=== PATIENT | male | born 1995 | race Caucasian/White ===

== ENCOUNTER 2018-01-12 16:33 | Inpatient (IN) | payer OTHER ==
[~2018-01-12] VITALS: Ht 182.9 cm; Wt 66.7 kg
[2018-01-13] MEDS ORDERED: POLYETHYLENE GLYCOL 3350 17 GM PACKET PO PRN (16:15)
[2018-01-13] MEDS ORDERED: OxyCODONE HCL 5 MG IR TABLET PO PRN (16:15)
[2018-01-13 17:30] VITALS: BP 114/74
[2018-01-13 20:09] LABS: GLUCOMETER DEV NAME(LOC) 2WR 1C; GLUCOSE,POINT OF CARE 98 MG/DL (70-110)
[2018-01-13] MEDS: DOCUSATE SODIUM 100 MG CAPSULE PO SCH (20:53)
[2018-01-13] MEDS: ACETAMINOPHEN 650 MG/20.3 ML SOLUTION UDCUP GT PRN (20:53)
[2018-01-13] MEDS ORDERED: QUEtiapine FUMARATE 25 MG TABLET PO SCH (21:00)
[2018-01-13] MEDS: 0.9% SODIUM CHLORIDE 10 ML SYRINGE IVP SCH (23:51)
[2018-01-13] MEDS: HEPARIN SODIUM,PORCINE 5,000 UNITS/ML VIAL SQ SCH (23:51)
[2018-01-14 00:30] VITALS: BP 128/65
[2018-01-14 06:24] LABS: GLUCOMETER DEV NAME(LOC) 2WR 1C; GLUCOSE,POINT OF CARE 108 MG/DL (70-110)
[2018-01-14 06:36] LABS: BASOPHILS % (AUTO) 0.2 % (0.0-2.0); EOSINOPHILS % (AUTO) 3.2 % (1.0-6.0); HEMATOCRIT 36.8 % (41-53); HEMOGLOBIN 12.5 g/dL (13.5-17.5); LYMPHOCYTES # (AUTO) 2.1 K/uL (1.0-4.8); LYMPHOCYTES % (AUTO) 22.9 % (22.0-44.0); MEAN CORPUSCULAR HEMOGLOBIN 30.8 pg (26.0-34.0); MEAN CORPUSCULAR VOLUME 91 fL (80-100); MONOCYTES % (AUTO) 10.3 % (2.0-9.0); NEUTROPHILS % (AUTO) 63.4 % (40.0-70.0); PLATELET COUNT (AUTO) 338 K/uL (150-450); RED BLOOD CELL COUNT(AUTO) 4.06 MIL/uL (4.50-5.90); RED CELL DISTRIBUTION WIDTH 14.8 % (11.5-14.5)
[2018-01-14] MEDS ORDERED: SODIUM CL IRRIG SOLN BOTTLE 250 ML IRRIG ONE (06:46)
[2018-01-14 06:52] LABS: ALANINE AMINOTRANSFERASE 53 U/L (12-78); ALBUMIN 3.5 g/dL (3.4-5.0); ALKALINE PHOSPHATASE 112 U/L (46-116); ANION GAP 8 mmol/L (8-16); ASPARTATE AMINOTRANSFERASE 25 U/L (15-37); BILIRUBIN,TOTAL 0.3 mg/dL (0.1-1.0); CALCIUM, TOTAL 9.4 mg/dL (8.8-10.5); CARBON DIOXIDE 30 mmol/L (22-29); CHLORIDE 101 mmol/L (98-107); CREATININE 0.63 mg/dL (0.60-1.30); GLOMERULAR FILTR. RATE CALC > 60 mL/min (>60); GLUCOSE,RANDOM 112 mg/dL (70-110); POTASSIUM 3.9 mmol/L (3.5-5.1); SODIUM SERUM 139 mmol/L (136-145); UREA NITROGEN, BLOOD 19 mg/dL (7-18)
[2018-01-14 07:19] VITALS: BP 133/69
[2018-01-14] MEDS: 0.9% SODIUM CHLORIDE 10 ML SYRINGE IVP SCH ×2 (08:43→16:24)
[2018-01-14] MEDS: HEPARIN SODIUM,PORCINE 5,000 UNITS/ML VIAL SQ SCH ×2 (08:45→16:24)
[2018-01-14] MEDS: CHLORHEXIDINE GLUCONATE 0.12% 15 ML UDCUP ORAL RINSE PO SCH (08:45)
[2018-01-14] MEDS: LACTOBAC ACID/BULG/BIFID/THERM TABLET GT SCH (08:45)
[2018-01-14] MEDS: DOCUSATE SODIUM 100 MG CAPSULE PO SCH ×2 (08:45→21:05)
[2018-01-14 13:28] LABS: GLUCOMETER DEV NAME(LOC) 2WR 1C; GLUCOSE,POINT OF CARE 112 MG/DL (70-110)
[2018-01-14 15:39] VITALS: BP 133/70
[2018-01-14 18:09] LABS: GLUCOMETER DEV NAME(LOC) 2WR 1C; GLUCOSE,POINT OF CARE 103 MG/DL (70-110)
[2018-01-14] MEDS ORDERED: SODIUM CHLORIDE 0.9% IRRIG BTL 1,000 ML IRRIG ONE (19:52)
[2018-01-14] MEDS ORDERED: POLYETHYLENE GLYCOL 3350 17 GM PACKET GT PRN (20:30)
[2018-01-14] MEDS: QUEtiapine FUMARATE 25 MG TABLET GT SCH (21:05)
[2018-01-15] MEDS: 0.9% SODIUM CHLORIDE 10 ML SYRINGE IVP SCH ×2 (00:15→08:00)
[2018-01-15] MEDS: HEPARIN SODIUM,PORCINE 5,000 UNITS/ML VIAL SQ SCH ×4 (00:15→20:37)
[2018-01-15 00:58] VITALS: BP 130/66
[2018-01-15] MEDS ORDERED: WATER FOR IRRIGATION,STERILE 1000 ML SOLUTION BOTTLE ONE (05:29)
[2018-01-15 06:29] LABS: GLUCOMETER DEV NAME(LOC) 2WR 1C; GLUCOSE,POINT OF CARE 111 MG/DL (70-110)
[2018-01-15 08:00] VITALS: BP 136/63
[2018-01-15] MEDS: DOCUSATE SODIUM 100 MG CAPSULE PO SCH ×2 (08:15→20:37)
[2018-01-15] MEDS: FAMOTIDINE 20 MG TABLET PEG SCH (08:15)
[2018-01-15] MEDS: LACTOBAC ACID/BULG/BIFID/THERM TABLET GT SCH (08:15)
[2018-01-15] MEDS: CHLORHEXIDINE GLUCONATE 0.12% 15 ML UDCUP ORAL RINSE PO SCH (08:16)
[2018-01-15 15:36] VITALS: BP 124/68
[2018-01-15 18:04] LABS: GLUCOMETER DEV NAME(LOC) 2WR 2E; GLUCOSE,POINT OF CARE 108 MG/DL (70-110)
[2018-01-15] MEDS: QUEtiapine FUMARATE 25 MG TABLET GT SCH (20:37)
[2018-01-16] VITALS: BP 129/68
[2018-01-16 05:54] LABS: GLUCOMETER DEV NAME(LOC) 2WR 1C; GLUCOSE,POINT OF CARE 110 MG/DL (70-110)
[2018-01-16] MEDS ORDERED: WATER FOR IRRIGATION,STERILE 1000 ML SOLUTION BOTTLE ONE (05:55)
[2018-01-16 07:30] VITALS: BP 129/69
[2018-01-16] MEDS: CHLORHEXIDINE GLUCONATE 0.12% 15 ML UDCUP ORAL RINSE PO SCH (08:16)
[2018-01-16] MEDS: LACTOBAC ACID/BULG/BIFID/THERM TABLET GT SCH (08:16)
[2018-01-16] MEDS: FAMOTIDINE 20 MG TABLET PEG SCH (08:16)
[2018-01-16] MEDS: DOCUSATE SODIUM 250 MG CAPSULE PO SCH ×2 (08:16→20:27)
[2018-01-16] MEDS: HEPARIN SODIUM,PORCINE 5,000 UNITS/ML VIAL SQ SCH ×3 (08:16→20:27)
[2018-01-16] MEDS: ACETAMINOPHEN 650 MG/20.3 ML SOLUTION UDCUP GT PRN (13:59)
[2018-01-16 15:24] VITALS: BP 124/65
[2018-01-16 19:38] LABS: GLUCOMETER DEV NAME(LOC) 2WR.2; GLUCOSE,POINT OF CARE 91 MG/DL (70-110)
[2018-01-16] MEDS: QUEtiapine FUMARATE 25 MG TABLET GT SCH (20:27)
[2018-01-16] MEDS: SENNA 218 MG/5 ML SYRUP ORAL.SYG GT SCH (20:27)
[2018-01-17 00:08] VITALS: BP 124/52
[2018-01-17 06:13] LABS: GLUCOMETER DEV NAME(LOC) 2WR.2; GLUCOSE,POINT OF CARE 105 MG/DL (70-110)
[2018-01-17 08:00] VITALS: BP 133/68
[2018-01-17] MEDS: FAMOTIDINE 20 MG TABLET PEG SCH (08:54)
[2018-01-17] MEDS: DOCUSATE SODIUM 250 MG CAPSULE PO SCH ×2 (08:54→20:16)
[2018-01-17] MEDS: CHLORHEXIDINE GLUCONATE 0.12% 15 ML UDCUP ORAL RINSE PO SCH (08:54)
[2018-01-17] MEDS: HEPARIN SODIUM,PORCINE 5,000 UNITS/ML VIAL SQ SCH ×3 (08:54→20:16)
[2018-01-17] MEDS: LACTOBAC ACID/BULG/BIFID/THERM TABLET GT SCH (08:54)
[2018-01-17] MEDS: ACETAMINOPHEN 650 MG/20.3 ML SOLUTION UDCUP GT PRN (14:04)
[2018-01-17] MEDS ORDERED: HYPROMELLOSE 0.5% 15 ML OPHTHALMIC SOLUTION OD PRN (15:00)
[2018-01-17 15:38] VITALS: BP 128/65
[2018-01-17 17:43] LABS: GLUCOMETER DEV NAME(LOC) 2WR.1; GLUCOSE,POINT OF CARE 108 MG/DL (70-110)
[2018-01-17 20:13] VITALS: BP 130/69
[2018-01-17] MEDS: QUEtiapine FUMARATE 25 MG TABLET GT SCH (20:15)
[2018-01-17] MEDS: SENNA 218 MG/5 ML SYRUP ORAL.SYG GT SCH (20:15)
[2018-01-17 23:38] VITALS: BP 120/70
[2018-01-18 06:19] LABS: GLUCOMETER DEV NAME(LOC) 2WR.1; GLUCOSE,POINT OF CARE 107 MG/DL (70-110)
[2018-01-18 07:29] LABS: ALANINE AMINOTRANSFERASE 38 U/L (12-78); ALBUMIN 3.3 g/dL (3.4-5.0); ALKALINE PHOSPHATASE 122 U/L (46-116); ANION GAP 7 mmol/L (8-16); ASPARTATE AMINOTRANSFERASE 28 U/L (15-37); BILIRUBIN,TOTAL 0.3 mg/dL (0.1-1.0); CALCIUM, TOTAL 8.8 mg/dL (8.8-10.5); CARBON DIOXIDE 30 mmol/L (22-29); CHLORIDE 103 mmol/L (98-107); CREATININE 0.77 mg/dL (0.60-1.30); GLOMERULAR FILTR. RATE CALC > 60 mL/min (>60); GLUCOSE,RANDOM 96 mg/dL (70-110); POTASSIUM 3.9 mmol/L (3.5-5.1); SODIUM SERUM 140 mmol/L (136-145); TOTAL PROTEIN, SERUM 7.4 g/dL (6.4-8.2); UREA NITROGEN, BLOOD 18 mg/dL (7-18)
[2018-01-18 08:00] VITALS: BP 126/70
[2018-01-18] MEDS: HEPARIN SODIUM,PORCINE 5,000 UNITS/ML VIAL SQ SCH ×3 (08:32→20:39)
[2018-01-18] MEDS: FAMOTIDINE 20 MG TABLET PEG SCH (08:32)
[2018-01-18] MEDS: DOCUSATE SODIUM 250 MG CAPSULE PO SCH ×2 (08:32→20:38)
[2018-01-18] MEDS: CHLORHEXIDINE GLUCONATE 0.12% 15 ML UDCUP ORAL RINSE PO SCH (08:32)
[2018-01-18] MEDS: LACTOBAC ACID/BULG/BIFID/THERM TABLET GT SCH (08:32)
[2018-01-18 15:30] VITALS: BP 131/73
[2018-01-18 17:59] LABS: GLUCOMETER DEV NAME(LOC) 2WR.2; GLUCOSE,POINT OF CARE 93 MG/DL (70-110)
[2018-01-18] MEDS: SENNA 218 MG/5 ML SYRUP ORAL.SYG GT SCH (20:38)
[2018-01-18] MEDS: QUEtiapine FUMARATE 25 MG TABLET GT SCH (20:38)
[2018-01-19 00:31] VITALS: BP 113/77
[2018-01-19 07:00] VITALS: BP 116/65
[2018-01-19 07:03] LABS: GLUCOMETER DEV NAME(LOC) 2WR.2; GLUCOSE,POINT OF CARE 98 MG/DL (70-110)
[2018-01-19] MEDS: LACTOBAC ACID/BULG/BIFID/THERM TABLET GT SCH (09:30)
[2018-01-19] MEDS: FAMOTIDINE 20 MG TABLET PEG SCH (09:30)
[2018-01-19] MEDS: CHLORHEXIDINE GLUCONATE 0.12% 15 ML UDCUP ORAL RINSE PO SCH (09:30)
[2018-01-19] MEDS: DOCUSATE SODIUM 250 MG CAPSULE PO SCH ×2 (09:30→20:52)
[2018-01-19] MEDS: HEPARIN SODIUM,PORCINE 5,000 UNITS/ML VIAL SQ SCH (09:30)
[2018-01-19 15:43] VITALS: BP 143/71
[2018-01-19] MEDS ORDERED: CHLORHEXIDINE GLUCONATE 4% 118 ML TOPICAL LIQUID TP ONE (19:00)
[2018-01-19 19:19] LABS: GLUCOMETER DEV NAME(LOC) 2WR.2; GLUCOSE,POINT OF CARE 92 MG/DL (70-110)
[2018-01-19] MEDS: SENNA 218 MG/5 ML SYRUP ORAL.SYG GT SCH (20:53)
[2018-01-19] MEDS: QUEtiapine FUMARATE 25 MG TABLET GT SCH (20:53)
[2018-01-19 23:30] VITALS: BP 119/67
[2018-01-20 05:59] LABS: GLUCOMETER DEV NAME(LOC) 2WR.1; GLUCOSE,POINT OF CARE 90 MG/DL (70-110)
[2018-01-20 06:30] VITALS: BP 134/63
[2018-01-20] MEDS: CHLORHEXIDINE GLUCONATE 0.12% 15 ML UDCUP ORAL RINSE PO SCH (09:00)
[2018-01-20] MEDS: LACTOBAC ACID/BULG/BIFID/THERM TABLET GT SCH (09:00)
[2018-01-20] MEDS: FAMOTIDINE 20 MG TABLET PEG SCH (09:00)
[2018-01-20] MEDS: DOCUSATE SODIUM 250 MG CAPSULE PO SCH ×2 (09:00→20:28)
[2018-01-20 17:49] VITALS: BP 127/67
[2018-01-20] MEDS: OxyCODONE HCL 5 MG IR TABLET GT PRN (18:18)
[2018-01-20 19:49] LABS: GLUCOMETER DEV NAME(LOC) 2WR.1; GLUCOSE,POINT OF CARE 88 MG/DL (70-110)
[2018-01-20] MEDS: QUEtiapine FUMARATE 25 MG TABLET GT SCH (20:28)
[2018-01-20] MEDS: SENNA 218 MG/5 ML SYRUP ORAL.SYG GT SCH (20:28)
[2018-01-21 00:21] VITALS: BP 115/61
[2018-01-21] MEDS: OxyCODONE HCL 5 MG IR TABLET GT PRN ×3 (00:21→09:19)
[2018-01-21 06:35] LABS: GLUCOMETER DEV NAME(LOC) 2WR.2; GLUCOSE,POINT OF CARE 101 MG/DL (70-110)
[2018-01-21 08:18] VITALS: BP 130/69
[2018-01-21] MEDS: FAMOTIDINE 20 MG TABLET PEG SCH (09:19)
[2018-01-21] MEDS: HEPARIN SODIUM,PORCINE 5,000 UNITS/ML VIAL SQ SCH ×4 (09:20→21:24)
[2018-01-21] MEDS: LACTOBAC ACID/BULG/BIFID/THERM TABLET GT SCH (09:20)
[2018-01-21] MEDS: CHLORHEXIDINE GLUCONATE 0.12% 15 ML UDCUP ORAL RINSE PO SCH (09:20)
[2018-01-21] MEDS: DOCUSATE SODIUM 250 MG CAPSULE PO SCH ×2 (09:20→21:24)
[2018-01-21] MEDS ORDERED: OxyCODONE HCL 5 MG IR TABLET GT PRN (12:15)
[2018-01-21] MEDS: HYDROmorphone HCL 2 MG TABLET GT PRN ×2 (12:30→14:46)
[2018-01-21 15:46] VITALS: BP 125/71
[2018-01-21] MEDS: SENNA 218 MG/5 ML SYRUP ORAL.SYG GT SCH (21:23)
[2018-01-21] MEDS: QUEtiapine FUMARATE 25 MG TABLET GT SCH (21:24)
[2018-01-22] VITALS: BP 125/61
[2018-01-22 06:03] LABS: GLUCOMETER DEV NAME(LOC) 2WR.2; GLUCOSE,POINT OF CARE 103 MG/DL (70-110)
[2018-01-22 06:47] LABS: BASOPHILS % (AUTO) 0.6 % (0.0-2.0); EOSINOPHILS % (AUTO) 7.3 % (1.0-6.0); HEMATOCRIT 37.5 % (41-53); LYMPHOCYTES # (AUTO) 1.7 K/uL (1.0-4.8); LYMPHOCYTES % (AUTO) 32.7 % (22.0-44.0); MEAN CORPUSCULAR HEMOGLOBIN 31.4 pg (26.0-34.0); MEAN CORPUSCULAR HGB CONC 34.8 G/dL (31.0-37.0); MEAN CORPUSCULAR VOLUME 90 fL (80-100); MONOCYTES # (AUTO) 0.4 K/uL (0.1-1.0); NEUTROPHILS # (AUTO) 2.7 K/uL (1.8-7.7); NEUTROPHILS % (AUTO) 52.4 % (40.0-70.0); PLATELET COUNT (AUTO) 308 K/uL (150-450); RED BLOOD CELL COUNT(AUTO) 4.15 MIL/uL (4.50-5.90); RED CELL DISTRIBUTION WIDTH 15.1 % (11.5-14.5)
[2018-01-22 07:03] LABS: ANION GAP 5 mmol/L (8-16); CALCIUM, TOTAL 8.9 mg/dL (8.8-10.5); CARBON DIOXIDE 31 mmol/L (22-29); CHLORIDE 104 mmol/L (98-107); CREATININE 0.85 mg/dL (0.60-1.30); GLOMERULAR FILTR. RATE CALC > 60 mL/min (>60); GLUCOSE,RANDOM 106 mg/dL (70-110); SODIUM SERUM 140 mmol/L (136-145); UREA NITROGEN, BLOOD 13 mg/dL (7-18)
[2018-01-22 08:00] VITALS: BP 109/59
[2018-01-22] MEDS: CHLORHEXIDINE GLUCONATE 0.12% 15 ML UDCUP ORAL RINSE PO SCH (08:58)
[2018-01-22] MEDS: FAMOTIDINE 20 MG TABLET PEG SCH (08:58)
[2018-01-22] MEDS: LACTOBAC ACID/BULG/BIFID/THERM TABLET GT SCH (08:58)
[2018-01-22] MEDS: HEPARIN SODIUM,PORCINE 5,000 UNITS/ML VIAL SQ SCH ×2 (08:59→21:03)
[2018-01-22] MEDS: DOCUSATE SODIUM 250 MG CAPSULE PO SCH ×2 (08:59→21:02)
[2018-01-22 15:42] VITALS: BP 127/64
[2018-01-22] MEDS: ACETAMINOPHEN 650 MG/20.3 ML SOLUTION UDCUP GT PRN (16:00)
[2018-01-22] MEDS: SENNA 218 MG/5 ML SYRUP ORAL.SYG GT SCH (21:02)
[2018-01-22] MEDS: QUEtiapine FUMARATE 25 MG TABLET GT SCH (21:02)
[2018-01-23 00:45] VITALS: BP 113/68
[2018-01-23] MEDS ORDERED: SODIUM CL IRRIG SOLN BOTTLE 250 ML IRRIG ONE (06:09)
[2018-01-23 06:39] LABS: GLUCOMETER DEV NAME(LOC) 2WR.1; GLUCOSE,POINT OF CARE 88 MG/DL (70-110)
[2018-01-23 07:28] VITALS: BP 120/70
[2018-01-23] MEDS: DOCUSATE SODIUM 250 MG CAPSULE PO SCH ×2 (08:08→20:53)
[2018-01-23] MEDS: HEPARIN SODIUM,PORCINE 5,000 UNITS/ML VIAL SQ SCH ×2 (08:08→20:54)
[2018-01-23] MEDS: CHLORHEXIDINE GLUCONATE 0.12% 15 ML UDCUP ORAL RINSE PO SCH (08:08)
[2018-01-23] MEDS: LACTOBAC ACID/BULG/BIFID/THERM TABLET GT SCH (08:08)
[2018-01-23] MEDS: FAMOTIDINE 20 MG TABLET PEG SCH (08:09)
[2018-01-23] MEDS ORDERED: ACETAMINOPHEN 650 MG/20.3 ML SOLUTION UDCUP PO PRN (11:30)
[2018-01-23] MEDS: MULTIVITAMINS WITH MINERALS, THERAPEUTIC TABLET PO SCH (13:27)
[2018-01-23 16:11] VITALS: BP 138/69
[2018-01-23 20:45] VITALS: BP 114/65
[2018-01-23] MEDS: SENNA 187 MG TABLET PO SCH (20:53)
[2018-01-23] MEDS: QUEtiapine FUMARATE 25 MG TABLET GT SCH (20:54)
[2018-01-23 21:45] VITALS: BP 115/56
[2018-01-23 23:39] VITALS: BP 108/55
[2018-01-24 06:20] LABS: GLUCOMETER DEV NAME(LOC) 2WR.2; GLUCOSE,POINT OF CARE 102 MG/DL (70-110)
[2018-01-24 07:29] VITALS: BP 117/65
[2018-01-24] MEDS: DOCUSATE SODIUM 250 MG CAPSULE PO SCH ×2 (08:06→20:04)
[2018-01-24] MEDS: CHLORHEXIDINE GLUCONATE 0.12% 15 ML UDCUP ORAL RINSE PO SCH (08:06)
[2018-01-24] MEDS: HEPARIN SODIUM,PORCINE 5,000 UNITS/ML VIAL SQ SCH ×2 (08:06→20:04)
[2018-01-24] MEDS: FAMOTIDINE 20 MG TABLET PO SCH (08:07)
[2018-01-24] MEDS: LACTOBAC ACID/BULG/BIFID/THERM TABLET PO SCH (08:07)
[2018-01-24] MEDS: MULTIVITAMINS WITH MINERALS, THERAPEUTIC TABLET PO SCH (08:08)
[2018-01-24] MEDS ORDERED: ACETAMINOPHEN 650 MG/20.3 ML SOLUTION UDCUP PO PRN (14:45)
[2018-01-24 15:20] VITALS: BP 119/74
[2018-01-24] MEDS: SENNA 187 MG TABLET PO SCH (20:04)
[2018-01-25] VITALS: BP 123/60
[2018-01-25] MEDS ORDERED: FAMO20 PO (03:06)
[2018-01-25] MEDS ORDERED: DOCU250C91 PO (03:06)
[2018-01-25] MEDS ORDERED: MULT-1239 PO (03:07)
[2018-01-25] MEDS ORDERED: PERID15L PO (03:10)
[2018-01-25 07:05] VITALS: BP 115/69
[2018-01-25] MEDS: MULTIVITAMINS WITH MINERALS, THERAPEUTIC TABLET PO SCH (07:35)
[2018-01-25] MEDS: LACTOBAC ACID/BULG/BIFID/THERM TABLET PO SCH (07:35)
[2018-01-25] MEDS: FAMOTIDINE 20 MG TABLET PO SCH (07:35)
[2018-01-25] MEDS: DOCUSATE SODIUM 250 MG CAPSULE PO SCH ×2 (07:35→20:49)
[2018-01-25] MEDS: HEPARIN SODIUM,PORCINE 5,000 UNITS/ML VIAL SQ SCH ×2 (07:36→20:50)
[2018-01-25] MEDS: CHLORHEXIDINE GLUCONATE 0.12% 15 ML UDCUP ORAL RINSE PO SCH (07:36)
[2018-01-25] MEDS: OxyCODONE HCL 5 MG IR TABLET PO PRN (14:05)
[2018-01-25 15:05] VITALS: BP 129/74
[2018-01-25] MEDS ORDERED: CARBOXYMETHYLCELLULOSE OD PRN (17:00)
[2018-01-25] MEDS ORDERED: REFRESH TEARS OD PRN (17:00)
[2018-01-25] MEDS ORDERED: [UNRECOGNIZED DRUG - OTHER] OD PRN (17:00)
[2018-01-25] MEDS: SENNA 187 MG TABLET PO SCH (20:49)
[2018-01-25] MEDS: ERYTHROMYCIN 0.5% 1 GM TUBE OPHTHALMIC OINTMENT OD SCH (20:49)
[2018-01-25] MEDS: REFRESH TEARS OD SCH (20:49)
[2018-01-26] VITALS: BP 131/67
[2018-01-26] MEDS: REFRESH TEARS OD SCH ×4 (07:39→20:33)
[2018-01-26] MEDS: DOCUSATE SODIUM 250 MG CAPSULE PO SCH ×2 (07:39→20:33)
[2018-01-26] MEDS: CHLORHEXIDINE GLUCONATE 0.12% 15 ML UDCUP ORAL RINSE PO SCH (07:39)
[2018-01-26] MEDS: LACTOBAC ACID/BULG/BIFID/THERM TABLET PO SCH (07:39)
[2018-01-26] MEDS: HEPARIN SODIUM,PORCINE 5,000 UNITS/ML VIAL SQ SCH ×2 (07:40→20:33)
[2018-01-26] MEDS: FAMOTIDINE 20 MG TABLET PO SCH (07:40)
[2018-01-26] MEDS: ERYTHROMYCIN 0.5% 1 GM TUBE OPHTHALMIC OINTMENT OD SCH ×4 (07:40→20:33)
[2018-01-26] MEDS: MULTIVITAMINS WITH MINERALS, THERAPEUTIC TABLET PO SCH (07:40)
[2018-01-26 08:00] VITALS: BP 109/63
[2018-01-26] MEDS ORDERED: POLYETHYLENE GLYCOL 3350 17 GM PACKET PO PRN (08:30)
[2018-01-26 15:40] VITALS: BP 126/73
[2018-01-26] MEDS: SENNA 187 MG TABLET PO SCH (20:33)
[2018-01-27] VITALS: BP 115/68
[2018-01-27 07:25] VITALS: BP 105/68
[2018-01-27] MEDS: CHLORHEXIDINE GLUCONATE 0.12% 15 ML UDCUP ORAL RINSE PO SCH (08:28)
[2018-01-27] MEDS: HEPARIN SODIUM,PORCINE 5,000 UNITS/ML VIAL SQ SCH ×2 (08:28→20:23)
[2018-01-27] MEDS: LACTOBAC ACID/BULG/BIFID/THERM TABLET PO SCH (08:28)
[2018-01-27] MEDS: MULTIVITAMINS WITH MINERALS, THERAPEUTIC TABLET PO SCH (08:28)
[2018-01-27] MEDS: REFRESH TEARS OD SCH ×4 (08:29→20:23)
[2018-01-27] MEDS: ERYTHROMYCIN 0.5% 1 GM TUBE OPHTHALMIC OINTMENT OD SCH ×4 (08:29→20:23)
[2018-01-27] MEDS: DOCUSATE SODIUM 250 MG CAPSULE PO SCH ×2 (08:29→20:23)
[2018-01-27] MEDS: FAMOTIDINE 20 MG TABLET PO SCH (08:29)
[2018-01-27 15:38] VITALS: BP 131/75
[2018-01-27] MEDS: SENNA 187 MG TABLET PO SCH (20:23)
[2018-01-28] VITALS: BP 124/66
[2018-01-28] MEDS: ACETAMINOPHEN 325 MG TABLET PO PRN (06:28)
[2018-01-28 07:48] VITALS: BP 114/64
[2018-01-28] MEDS: ERYTHROMYCIN 0.5% 1 GM TUBE OPHTHALMIC OINTMENT OD SCH ×6 (09:00→20:40)
[2018-01-28] MEDS: REFRESH TEARS OD SCH ×4 (09:26→20:40)
[2018-01-28] MEDS: HEPARIN SODIUM,PORCINE 5,000 UNITS/ML VIAL SQ SCH ×2 (09:27→20:39)
[2018-01-28] MEDS: DOCUSATE SODIUM 250 MG CAPSULE PO SCH ×2 (09:27→20:39)
[2018-01-28] MEDS: FAMOTIDINE 20 MG TABLET PO SCH (09:27)
[2018-01-28] MEDS: MULTIVITAMINS WITH MINERALS, THERAPEUTIC TABLET PO SCH (09:27)
[2018-01-28] MEDS: CHLORHEXIDINE GLUCONATE 0.12% 15 ML UDCUP ORAL RINSE PO SCH (09:27)
[2018-01-28] MEDS: LACTOBAC ACID/BULG/BIFID/THERM TABLET PO SCH (09:27)
[2018-01-28] MEDS ORDERED: ERYTHROMYCIN 0.5% 3.5 GM TUBE OPHTHALMIC OINTMENT OD SCH (09:45)
[2018-01-28 16:03] VITALS: BP 119/70
[2018-01-28] MEDS ORDERED: LORazepam 0.5 MG TABLET PO PRN (16:15)
[2018-01-28] MEDS: SCOPOLAMINE HYDROBROMIDE 1.5 MG PATCH TD SCH (17:36)
[2018-01-28] MEDS: SENNA 187 MG TABLET PO SCH (20:39)
[2018-01-29 01:33] VITALS: BP 124/69
[2018-01-29 07:30] VITALS: BP 117/71
[2018-01-29] MEDS: ERYTHROMYCIN 0.5% 1 GM TUBE OPHTHALMIC OINTMENT OD SCH ×4 (09:00→21:04)
[2018-01-29] MEDS: HEPARIN SODIUM,PORCINE 5,000 UNITS/ML VIAL SQ SCH ×2 (09:00→21:04)
[2018-01-29] MEDS: REFRESH TEARS OD SCH ×4 (09:44→21:04)
[2018-01-29] MEDS: DOCUSATE SODIUM 250 MG CAPSULE PO SCH ×2 (09:45→21:03)
[2018-01-29] MEDS: FAMOTIDINE 20 MG TABLET PO SCH (09:45)
[2018-01-29] MEDS: LACTOBAC ACID/BULG/BIFID/THERM TABLET PO SCH (09:45)
[2018-01-29] MEDS: CHLORHEXIDINE GLUCONATE 0.12% 15 ML UDCUP ORAL RINSE PO SCH (09:47)
[2018-01-29] MEDS: MULTIVITAMINS WITH MINERALS, THERAPEUTIC TABLET PO SCH (09:57)
[2018-01-29 15:48] VITALS: BP 131/67
[2018-01-29] MEDS: SENNA 187 MG TABLET PO SCH (21:03)
[2018-01-29] MEDS: ACETAMINOPHEN 325 MG TABLET PO PRN (21:09)
[2018-01-29 23:30] VITALS: BP 119/73
[2018-01-30 07:32] VITALS: BP 105/63
[2018-01-30] MEDS: DOCUSATE SODIUM 250 MG CAPSULE PO SCH ×2 (08:10→21:28)
[2018-01-30] MEDS: CHLORHEXIDINE GLUCONATE 0.12% 15 ML UDCUP ORAL RINSE PO SCH (08:10)
[2018-01-30] MEDS: LACTOBAC ACID/BULG/BIFID/THERM TABLET PO SCH (08:10)
[2018-01-30] MEDS: MULTIVITAMINS WITH MINERALS, THERAPEUTIC TABLET PO SCH (08:10)
[2018-01-30] MEDS: REFRESH TEARS OD SCH ×4 (08:11→21:27)
[2018-01-30] MEDS: HEPARIN SODIUM,PORCINE 5,000 UNITS/ML VIAL SQ SCH ×2 (08:11→21:28)
[2018-01-30] MEDS: ERYTHROMYCIN 0.5% 1 GM TUBE OPHTHALMIC OINTMENT OD SCH ×5 (08:13→21:27)
[2018-01-30] MEDS: FAMOTIDINE 20 MG TABLET PO SCH (08:14)
[2018-01-30] MEDS: OxyCODONE HCL 5 MG IR TABLET PO PRN (16:20)
[2018-01-30 16:40] VITALS: BP 121/74
[2018-01-30] MEDS: SENNA 187 MG TABLET PO SCH (21:27)
[2018-01-31 06:28] LABS: BASOPHILS % (AUTO) 0.3 % (0.0-2.0); EOSINOPHILS % (AUTO) 1.8 % (1.0-6.0); HEMATOCRIT 38.7 % (41-53); HEMOGLOBIN 13.2 g/dL (13.5-17.5); MEAN CORPUSCULAR HEMOGLOBIN 30.5 pg (26.0-34.0); MEAN CORPUSCULAR HGB CONC 34.1 G/dL (31.0-37.0); MEAN CORPUSCULAR VOLUME 89 fL (80-100); MONOCYTES # (AUTO) 0.6 K/uL (0.1-1.0); MONOCYTES % (AUTO) 11.8 % (2.0-9.0); NEUTROPHILS # (AUTO) 2.1 K/uL (1.8-7.7); NEUTROPHILS % (AUTO) 44.1 % (40.0-70.0); PLATELET COUNT (AUTO) 283 K/uL (150-450); RED BLOOD CELL COUNT(AUTO) 4.32 MIL/uL (4.50-5.90); RED CELL DISTRIBUTION WIDTH 14.2 % (11.5-14.5)
[2018-01-31 06:59] LABS: ALANINE AMINOTRANSFERASE 23 U/L (12-78); ALBUMIN 3.5 g/dL (3.4-5.0); ALKALINE PHOSPHATASE 117 U/L (46-116); ANION GAP 7 mmol/L (8-16); ASPARTATE AMINOTRANSFERASE 17 U/L (15-37); BILIRUBIN,TOTAL 0.3 mg/dL (0.1-1.0); CARBON DIOXIDE 31 mmol/L (22-29); CHLORIDE 102 mmol/L (98-107); CREATININE 0.84 mg/dL (0.60-1.30); GLOMERULAR FILTR. RATE CALC > 60 mL/min (>60); GLUCOSE,RANDOM 88 mg/dL (70-110); POTASSIUM 3.5 mmol/L (3.5-5.1); SODIUM SERUM 140 mmol/L (136-145); TOTAL PROTEIN, SERUM 7.5 g/dL (6.4-8.2); UREA NITROGEN, BLOOD 11 mg/dL (7-18)
[2018-01-31 07:20] VITALS: BP 113/60
[2018-01-31] MEDS: MULTIVITAMINS WITH MINERALS, THERAPEUTIC TABLET PO SCH (08:39)
[2018-01-31] MEDS: DOCUSATE SODIUM 250 MG CAPSULE PO SCH ×2 (08:39→20:56)
[2018-01-31] MEDS: LACTOBAC ACID/BULG/BIFID/THERM TABLET PO SCH (08:39)
[2018-01-31] MEDS: CHLORHEXIDINE GLUCONATE 0.12% 15 ML UDCUP ORAL RINSE PO SCH (08:40)
[2018-01-31] MEDS: FAMOTIDINE 20 MG TABLET PO SCH (08:40)
[2018-01-31] MEDS: REFRESH TEARS OD SCH ×4 (08:40→20:55)
[2018-01-31] MEDS: HEPARIN SODIUM,PORCINE 5,000 UNITS/ML VIAL SQ SCH (08:40)
[2018-01-31] MEDS: ERYTHROMYCIN 0.5% 1 GM TUBE OPHTHALMIC OINTMENT OD SCH ×4 (09:00→20:55)
[2018-01-31] MEDS: SCOPOLAMINE HYDROBROMIDE 1.5 MG PATCH TD SCH (09:42)
[2018-01-31 15:00] VITALS: BP 113/63
[2018-01-31] MEDS: SENNA 187 MG TABLET PO SCH (20:56)
[2018-02-01] VITALS: BP 107/58
[2018-02-01 07:24] VITALS: BP 105/62
[2018-02-01] MEDS: FAMOTIDINE 20 MG TABLET PO SCH (07:38)
[2018-02-01] MEDS: MULTIVITAMINS WITH MINERALS, THERAPEUTIC TABLET PO SCH (07:38)
[2018-02-01] MEDS: ASPIRIN 81 MG CHEWABLE TABLET PO SCH (07:38)
[2018-02-01] MEDS: ERYTHROMYCIN 0.5% 1 GM TUBE OPHTHALMIC OINTMENT OD SCH ×5 (07:38→20:31)
[2018-02-01] MEDS: REFRESH TEARS OD SCH ×4 (07:38→20:31)
[2018-02-01] MEDS: DOCUSATE SODIUM 250 MG CAPSULE PO SCH ×2 (07:38→20:31)
[2018-02-01] MEDS: CHLORHEXIDINE GLUCONATE 0.12% 15 ML UDCUP ORAL RINSE PO SCH (07:38)
[2018-02-01] MEDS: LACTOBAC ACID/BULG/BIFID/THERM TABLET PO SCH (07:38)
[2018-02-01 13:18] LABS: ABG A-A DIFF O2 4.9 mmHg (10-20.0); ABG BASE EXCESS 3.2 mmol/L (-2.0-3.0); ABG CARBOXYHEMOGLOBIN 1.4 % (0.0-3.0); ABG HCO3 26.8 mmol/L (22.0-26.0); ABG METHEMOGLOBIN 0.4 % (0.0-1.5); ABG OXYGEN CONTENT 19.8 mL/dL (15.0-23.0); ABG OXYGEN SATURATION 97.4 % (95.0-98.0); ABG OXYHEMOGLOBIN 95.6 % (94.0-100.0); ABG PCO2 45 mmHg (35-45); ABG PH 7.408 (7.350-7.450); ABG TOTAL HEMOGLOBIN 14.7 G/dL (12.0-18.0); PO2, ARTERIAL BG 90.8 mmHg (80.0-100.0); SOURCE, BLOOD GAS ARTERIAL; TEMPERATURE, FAHRENHEIT, BG 98.4 FAHREN (96.0-98.6)
[2018-02-01 13:21] LABS: O2 DEVICE,BLOOD GAS ROOM AIR (ROOM AIR); SITE, BLOOD GAS RT RADIAL
[2018-02-01 15:23] VITALS: BP 141/66
[2018-02-01 15:33] VITALS: BP 120/65
[2018-02-01] MEDS: SENNA 187 MG TABLET PO SCH (20:31)
[2018-02-02 06:00] VITALS: BP 126/62
[2018-02-02 07:34] VITALS: BP 116/58
[2018-02-02] MEDS: REFRESH TEARS OD SCH ×4 (08:17→21:07)
[2018-02-02] MEDS: ERYTHROMYCIN 0.5% 1 GM TUBE OPHTHALMIC OINTMENT OD SCH ×4 (08:18→21:07)
[2018-02-02] MEDS: ASPIRIN 81 MG CHEWABLE TABLET PO SCH (08:18)
[2018-02-02] MEDS: MULTIVITAMINS WITH MINERALS, THERAPEUTIC TABLET PO SCH (08:18)
[2018-02-02] MEDS: FAMOTIDINE 20 MG TABLET PO SCH (08:18)
[2018-02-02] MEDS: DOCUSATE SODIUM 250 MG CAPSULE PO SCH ×2 (08:18→21:07)
[2018-02-02] MEDS: CHLORHEXIDINE GLUCONATE 0.12% 15 ML UDCUP ORAL RINSE PO SCH (08:18)
[2018-02-02] MEDS: LACTOBAC ACID/BULG/BIFID/THERM TABLET PO SCH (08:18)
[2018-02-02 16:15] VITALS: BP 125/65
[2018-02-02] MEDS: SENNA 187 MG TABLET PO SCH (21:07)
[2018-02-03 06:27] VITALS: BP 116/60
[2018-02-03] MEDS: FAMOTIDINE 20 MG TABLET PO SCH (08:30)
[2018-02-03] MEDS: ERYTHROMYCIN 0.5% 1 GM TUBE OPHTHALMIC OINTMENT OD SCH ×4 (08:30→20:52)
[2018-02-03] MEDS: ASPIRIN 81 MG CHEWABLE TABLET PO SCH (08:30)
[2018-02-03] MEDS: REFRESH TEARS OD SCH ×4 (08:30→20:52)
[2018-02-03] MEDS: LACTOBAC ACID/BULG/BIFID/THERM TABLET PO SCH (08:30)
[2018-02-03] MEDS: DOCUSATE SODIUM 250 MG CAPSULE PO SCH ×2 (08:30→20:52)
[2018-02-03] MEDS: MULTIVITAMINS WITH MINERALS, THERAPEUTIC TABLET PO SCH (08:31)
[2018-02-03] MEDS: CHLORHEXIDINE GLUCONATE 0.12% 15 ML UDCUP ORAL RINSE PO SCH (08:31)
[2018-02-03] MEDS: SCOPOLAMINE HYDROBROMIDE 1.5 MG PATCH TD SCH (08:32)
[2018-02-03 08:53] VITALS: BP 116/49
[2018-02-03 15:49] VITALS: BP 132/71
[2018-02-03] MEDS: SENNA 187 MG TABLET PO SCH (20:52)
[2018-02-04 07:00] VITALS: BP 105/48
[2018-02-04 08:50] VITALS: BP 123/63
[2018-02-04] MEDS: FAMOTIDINE 20 MG TABLET PO SCH (09:49)
[2018-02-04] MEDS: DOCUSATE SODIUM 250 MG CAPSULE PO SCH ×2 (09:49→21:00)
[2018-02-04] MEDS: ASPIRIN 81 MG CHEWABLE TABLET PO SCH (09:49)
[2018-02-04] MEDS: CHLORHEXIDINE GLUCONATE 0.12% 15 ML UDCUP ORAL RINSE PO SCH (09:49)
[2018-02-04] MEDS: MULTIVITAMINS WITH MINERALS, THERAPEUTIC TABLET PO SCH (09:49)
[2018-02-04] MEDS: ERYTHROMYCIN 0.5% 1 GM TUBE OPHTHALMIC OINTMENT OD SCH ×4 (09:51→21:00)
[2018-02-04] MEDS: REFRESH TEARS OD SCH ×4 (09:54→21:00)
[2018-02-04 15:40] VITALS: BP 117/64
[2018-02-04] MEDS: SENNA 187 MG TABLET PO SCH (21:00)
[2018-02-05 06:36] VITALS: BP 113/48
[2018-02-05 08:00] VITALS: BP 110/57
[2018-02-05] MEDS: ASPIRIN 81 MG CHEWABLE TABLET PO SCH (09:36)
[2018-02-05] MEDS: CHLORHEXIDINE GLUCONATE 0.12% 15 ML UDCUP ORAL RINSE PO SCH (09:36)
[2018-02-05] MEDS: DOCUSATE SODIUM 250 MG CAPSULE PO SCH ×2 (09:36→20:49)
[2018-02-05] MEDS: FAMOTIDINE 20 MG TABLET PO SCH (09:37)
[2018-02-05] MEDS: MULTIVITAMINS WITH MINERALS, THERAPEUTIC TABLET PO SCH (09:37)
[2018-02-05] MEDS: REFRESH TEARS OD SCH ×4 (09:37→20:46)
[2018-02-05] MEDS: ERYTHROMYCIN 0.5% 1 GM TUBE OPHTHALMIC OINTMENT OD SCH ×4 (09:37→20:45)
[2018-02-05 15:31] VITALS: BP 107/53
[2018-02-05] MEDS: SENNA 187 MG TABLET PO SCH (20:49)
[2018-02-06 06:37] VITALS: BP 112/44
[2018-02-06 08:00] VITALS: BP 115/62
[2018-02-06] MEDS: MULTIVITAMINS WITH MINERALS, THERAPEUTIC TABLET PO SCH (09:05)
[2018-02-06] MEDS: DOCUSATE SODIUM 250 MG CAPSULE PO SCH ×2 (09:05→20:49)
[2018-02-06] MEDS: FAMOTIDINE 20 MG TABLET PO SCH (09:05)
[2018-02-06] MEDS: ASPIRIN 81 MG CHEWABLE TABLET PO SCH (09:05)
[2018-02-06] MEDS: OxyCODONE HCL 5 MG IR TABLET PO PRN (09:05)
[2018-02-06] MEDS: REFRESH TEARS OD SCH ×4 (09:06→20:47)
[2018-02-06] MEDS: ERYTHROMYCIN 0.5% 1 GM TUBE OPHTHALMIC OINTMENT OD SCH ×4 (09:06→20:47)
[2018-02-06] MEDS: CHLORHEXIDINE GLUCONATE 0.12% 15 ML UDCUP ORAL RINSE PO SCH (09:31)
[2018-02-06 16:21] VITALS: BP 126/67
[2018-02-06] MEDS: SENNA 187 MG TABLET PO SCH (20:49)
[2018-02-07] VITALS: BP 110/56
[2018-02-07 08:00] VITALS: BP 106/61
[2018-02-07] MEDS: REFRESH TEARS OD SCH ×4 (09:08→20:20)
[2018-02-07] MEDS: FAMOTIDINE 20 MG TABLET PO SCH (09:09)
[2018-02-07] MEDS: DOCUSATE SODIUM 250 MG CAPSULE PO SCH ×2 (09:09→20:22)
[2018-02-07] MEDS: ERYTHROMYCIN 0.5% 1 GM TUBE OPHTHALMIC OINTMENT OD SCH ×4 (09:09→20:19)
[2018-02-07] MEDS: CHLORHEXIDINE GLUCONATE 0.12% 15 ML UDCUP ORAL RINSE PO SCH (09:09)
[2018-02-07] MEDS: ASPIRIN 81 MG CHEWABLE TABLET PO SCH (09:10)
[2018-02-07] MEDS: MULTIVITAMINS WITH MINERALS, THERAPEUTIC TABLET PO SCH (09:11)
[2018-02-07 15:48] VITALS: BP 123/60
[2018-02-07] MEDS: SENNA 187 MG TABLET PO SCH (20:22)
[2018-02-08 06:27] VITALS: BP 107/60
[2018-02-08 07:00] VITALS: BP 104/57
[2018-02-08] MEDS: MULTIVITAMINS WITH MINERALS, THERAPEUTIC TABLET PO SCH (08:16)
[2018-02-08] MEDS: DOCUSATE SODIUM 250 MG CAPSULE PO SCH ×2 (08:17→21:00)
[2018-02-08] MEDS: FAMOTIDINE 20 MG TABLET PO SCH (08:17)
[2018-02-08] MEDS: ASPIRIN 81 MG CHEWABLE TABLET PO SCH (08:17)
[2018-02-08] MEDS: ERYTHROMYCIN 0.5% 1 GM TUBE OPHTHALMIC OINTMENT OD SCH ×4 (08:18→20:38)
[2018-02-08] MEDS: REFRESH TEARS OD SCH ×4 (08:20→20:38)
[2018-02-08] MEDS: CHLORHEXIDINE GLUCONATE 0.12% 15 ML UDCUP ORAL RINSE PO SCH (08:21)
[2018-02-08 17:32] VITALS: BP 133/73
[2018-02-08 20:39] VITALS: BP 122/75
[2018-02-08] MEDS: SENNA 187 MG TABLET PO SCH (21:00)
[2018-02-09 06:24] VITALS: BP 116/61
[2018-02-09 07:28] VITALS: BP 105/58
[2018-02-09] MEDS: DOCUSATE SODIUM 250 MG CAPSULE PO SCH (09:00)
[2018-02-09] MEDS: FAMOTIDINE 20 MG TABLET PO SCH (09:16)
[2018-02-09] MEDS: ERYTHROMYCIN 0.5% 1 GM TUBE OPHTHALMIC OINTMENT OD SCH ×4 (09:16→20:41)
[2018-02-09] MEDS: MULTIVITAMINS WITH MINERALS, THERAPEUTIC TABLET PO SCH (09:16)
[2018-02-09] MEDS: CHLORHEXIDINE GLUCONATE 0.12% 15 ML UDCUP ORAL RINSE PO SCH (09:16)
[2018-02-09] MEDS: REFRESH TEARS OD SCH ×4 (09:17→20:42)
[2018-02-09 15:20] VITALS: BP 121/62
[2018-02-10 06:30] VITALS: BP 97/55
[2018-02-10 08:00] VITALS: BP 98/47
[2018-02-10] MEDS: ERYTHROMYCIN 0.5% 1 GM TUBE OPHTHALMIC OINTMENT OD SCH ×4 (09:57→20:43)
[2018-02-10] MEDS: REFRESH TEARS OD SCH ×4 (09:57→20:43)
[2018-02-10] MEDS: MULTIVITAMINS WITH MINERALS, THERAPEUTIC TABLET PO SCH (09:57)
[2018-02-10 16:13] VITALS: BP 121/56
[2018-02-10] MEDS ORDERED: [UNRECOGNIZED DRUG - CODE] OD (22:21)
[2018-02-10] MEDS ORDERED: CARB30DR4 OD (22:29)
[2018-02-10] MEDS ORDERED: CARB15DR OD (22:29)
[2018-02-11 00:30] VITALS: BP 110/56
[2018-02-11 07:10] VITALS: BP 114/60
[2018-02-11] MEDS: ERYTHROMYCIN 0.5% 1 GM TUBE OPHTHALMIC OINTMENT OD SCH ×4 (09:00→21:24)
[2018-02-11] MEDS: MULTIVITAMINS WITH MINERALS, THERAPEUTIC TABLET PO SCH (09:27)
[2018-02-11] MEDS: REFRESH TEARS OD SCH ×4 (09:27→21:25)
[2018-02-11 15:00] VITALS: BP 114/53
[2018-02-12 05:23] VITALS: BP 100/55
[2018-02-12 07:52] VITALS: BP 100/51
[2018-02-12] MEDS: REFRESH TEARS OD SCH ×4 (09:00→21:10)
[2018-02-12] MEDS: ERYTHROMYCIN 0.5% 1 GM TUBE OPHTHALMIC OINTMENT OD SCH ×4 (09:00→21:10)
[2018-02-12] MEDS: MULTIVITAMINS WITH MINERALS, THERAPEUTIC TABLET PO SCH (09:23)
[2018-02-12 16:04] VITALS: BP 112/55
[2018-02-13 05:54] VITALS: BP 104/62
[2018-02-13 09:29] VITALS: BP 108/66
[2018-02-13] MEDS: MULTIVITAMINS WITH MINERALS, THERAPEUTIC TABLET PO SCH (10:00)
[2018-02-13 15:30] VITALS: BP 107/54
[2018-02-14 06:00] VITALS: BP 102/60
[2018-02-14 06:46] LABS: HEMATOCRIT 39.1 % (41-53); HEMOGLOBIN 13.4 g/dL (13.5-17.5); MEAN CORPUSCULAR HEMOGLOBIN 30.8 pg (26.0-34.0); MEAN CORPUSCULAR HGB CONC 34.3 G/dL (31.0-37.0); MEAN CORPUSCULAR VOLUME 90 fL (80-100); PLATELET COUNT (AUTO) 272 K/uL (150-450); RED BLOOD CELL COUNT(AUTO) 4.36 MIL/uL (4.50-5.90); RED CELL DISTRIBUTION WIDTH 13.5 % (11.5-14.5)
[2018-02-14 07:00] VITALS: BP 106/57
[2018-02-14 07:02] LABS: ANION GAP 9 mmol/L (8-16); CALCIUM, TOTAL 8.9 mg/dL (8.8-10.5); CARBON DIOXIDE 28 mmol/L (22-29); CHLORIDE 104 mmol/L (98-107); CREATININE 0.75 mg/dL (0.60-1.30); GLOMERULAR FILTR. RATE CALC > 60 mL/min (>60); GLUCOSE,RANDOM 86 mg/dL (70-110); POTASSIUM 3.8 mmol/L (3.5-5.1); SODIUM SERUM 141 mmol/L (136-145); UREA NITROGEN, BLOOD 12 mg/dL (7-18)
[2018-02-14 08:37] LABS: BAND NEUTROPHILS % (MANUAL) 1 % (0-5); EOSINOPHILS % (MANUAL) 2 % (1-6); LYMPHOCYTES % (MANUAL) 41 % (22-44); MONOCYTES % (MANUAL) 8 % (2-9); SEGMENTED NEUTROPHILS % 48 % (40-70)
[2018-02-14] MEDS: MULTIVITAMINS WITH MINERALS, THERAPEUTIC TABLET PO SCH (08:52)
[2018-02-14 17:30] VITALS: BP 121/82
[2018-02-15 06:07] VITALS: BP 102/71
[2018-02-15 07:28] VITALS: BP 108/54
[2018-02-15] MEDS: MULTIVITAMINS WITH MINERALS, THERAPEUTIC TABLET PO SCH (08:45)
== END 2018-02-15 09:35 | disposition home health service (06) | DRG 963 ==
LOC: 2WR 01-13 15:45
DX: S06.5X0A Traumatic subdural hemorrhage without loss of consciousness, initial encounter (principal); S52.92XB Unspecified fracture of left forearm, initial encounter for open fracture type I or II; J96.90 Respiratory failure, unspecified, unspecified whether with hypoxia or hypercapnia; S52.202B Unspecified fracture of shaft of left ulna, initial encounter for open fracture type I or II; S52.501A Unspecified fracture of the lower end of right radius, initial encounter for closed fracture; S22.019A Unspecified fracture of first thoracic vertebra, initial encounter for closed fracture; S22.029A Unspecified fracture of second thoracic vertebra, initial encounter for closed fracture; S22.32XA Fracture of one rib, left side, initial encounter for closed fracture; S06.4X0A Epidural hemorrhage without loss of consciousness, initial encounter; S02.40EA Zygomatic fracture, right side, initial encounter for closed fracture; S02.81XA Fracture of other specified skull and facial bones, right side, initial encounter for closed fracture; S02.40DA Maxillary fracture, left side, initial encounter for closed fracture; S02.609A Fracture of mandible, unspecified, initial encounter for closed fracture; S42.001A Fracture of unspecified part of right clavicle, initial encounter for closed fracture; R13.10 Dysphagia, unspecified; D64.9 Anemia, unspecified; F43.21 Adjustment disorder with depressed mood; K59.00 Constipation, unspecified; Z93.1 Gastrostomy status; Z93.0 Tracheostomy status; Z79.82 Long term (current) use of aspirin; Z79.899 Other long term (current) drug therapy
CPT/HCPCS: 74230; 76000; 82805; 84134; 85007; 87081; 92507; 92508; 92523; 92526; 92611; 97110; 97112; 97116; 97140; 97150; 97162; 97166; 97530; 97535; 99241; 99366; J1644